=== PATIENT | female | born 1955 | race Caucasian/White ===

== ENCOUNTER → 2017-06-21 | Outpatient (CLI) | payer OTHER ==
--- NOTE | 2017-06-21 13:04 | US ---
EXAMINATION TYPE: US transvaginal DATE OF EXAM: 06/21/2017 COMPARISON: NONE CLINICAL HISTORY: 62-year-old female R10.2 Pelvic Pain R14.0 Bloating. Bloating, intermittent left pe lvic pain TECHNIQUE: Transvaginal (TV) Date of LMP: unknown FINDINGS: Uterus: Retroverted measuring 5.3 x 2.8 x 4.1 cm Endometrial Stripe: 0.24 cm, thin and normal. There is trace fluid within the uterine cavity. Right Ovary: 1.7 x 0.9 x 1.1 cm Left Ovary: 1.8 x 0.9 x 1.2 cm Both ovaries are small and normal consistent with postmenopausal status. No evident adnexal abnormality or cul-de-sac free fluid. IMPRESSION: 1. Small amount of fluid along the uterine cavity unusual in a postmenopausal female but of questiona ble clinical significance. The stripe itself remains thin. 2. Otherwise, no specific abnormality seen.
== END | disposition home or self-care (01) ==
LOC: RADUSWWP 10:09
PROVIDERS: ATTEND Obstetrics & Gynecology
DX: R10.2 Pelvic and perineal pain (principal); R14.0 Abdominal distension (gaseous)
CPT/HCPCS: 76830; 86304

== ENCOUNTER → 2022-05-31 | Outpatient (CLI) | payer MEDICARE, OTHER ==
--- NOTE | 2022-06-01 09:01 | MM ---
Reason for Exam: Hx of breast augmentation, asymptomatic. Last mammogram was performed 1 year(s) and 9 month(s) ago. Patient History: Menarche at age 13. First Full-Term at age 19. Postmenopausal. 03/25/2010, Benign Excisional Biopsy on the right side. Bilateral Implants. Risk Values: Erin 5 year model risk: 1.7%. NCI Lifetime model risk: 5.1%. Prior Study Comparison: 03/02/2010 Right MG diagnostic mammo RT w CAD - 2, [facility]. 05/14/2019 Bilateral MG screening mammo implant/CAD, [facility]. 08/09/2020 Bilateral MG screening mammo implant/CAD, Unknown. Tissue Density: The breast tissue is heterogeneously dense. This may lower the sensitivity of mammography. Findings: Analyzed By CAD. Bilateral breast implants, implants appear intact. Benign-appearing calcifications. There is no suspicious group of microcalcifications or new suspicious mass in either breast. Overall Assessment: Benign, BI-RAD 2 Management: Screening Mammogram of both breasts in 1 year. A clinical breast exam by your physician is recommended on an annual basis and results should be correlated with mammographic findings. [facility] will attempt to contact patient to return for supplemental views and ultrasound if indicated. Electronically signed and approved by: Max Salinas DO
== END | disposition home or self-care (01) ==
LOC: RADMAMWWP 10:31
PROVIDERS: ATTEND Obstetrics & Gynecology
DX: Z12.31 Encounter for screening mammogram for malignant neoplasm of breast (principal); Z78.0 Asymptomatic menopausal state
CPT/HCPCS: 77063; 77067

== ENCOUNTER → 2023-06-27 | Outpatient (CLI) | payer MEDICARE ==
--- NOTE | 2023-06-27 19:45 | BD ---
EXAMINATION TYPE: Axial Bone Density DATE OF EXAM: 06/27/2023 CLINICAL HISTORY: 68 years old Female. ICD-10 CODE: M85.88 OTH DISRD OF BONE DENS Height: 63" Weight: 145lbs FRAX RISK QUESTIONS: Alcohol (3 or more units per day): No Family History (Parent hip fracture): No Glucocorticoids (More than 3mos): No (Ex: prednisone, prednisolone, methylprednisolone, dexamethasone, and hydrocortisone). History of Fracture in Adulthood: No Secondary Osteoporosis: 1. Type 1 Diabetes: No 2. Hyperthyroidism: No 3. Menopause before 45: No 4. Malnutrition: No 5. Chronic liver disease: No Rheumatoid Arthritis: No Current Tobacco Use: No RISK FACTORS HISTORY OF: Hip Fracture (Right/Left): No Spine Fracture: No History of Wrist Fracture: No Surgery to Spine/Hip(right/left)/Wrist (right/left): No MEDICATIONS: Thyroid Medications: Yes Which medication: Levothyroxine How Lon years Osteoporosis Medications: No EXAM MEASUREMENTS: Bone mineral densitometry was performed using the [employer]. Bone mineral density as measured about the Lumbar spine is: ----- L1-L4(G/cm2): 1.080 T Score Values are as follows: ----- L1: -1.2 ----- L2: -1.5 ----- L3: -1.2 ----- L4: 0.0 ----- L1-L4: -0.8 Z Score Values are as follows: ----- L1: 0.4 ----- L2: 0.1 ----- L3: 0.5 ----- L4: 1.7 ----- L1-L4: 0.8 Baseline @MPH Bone mineral density about the R hip (g/cm2): 0.854 Bone mineral density about the L hip (g/cm2): 0.865 T Score values are as follows: -----R Neck: -1.7 -----L Neck: -1.0 -----R Total: -1.2 -----L Total: -1.1 Z Score values are as follows: -----R Neck: -0.1 -----L Neck: 0.6 -----R Total: 0.2 -----L Total: 0.3 Baseline @MPH FRAX%s: The graph provided illustrates a 10.7% chance for a major osteoporotic fx and a 1.8% chance f or the hips probability for fx in 10 years time. IMPRESSION: Osteopenia (T Score between -2.5 and -1). There is slightly increased risk of fracture and the patient may be considered for treatment. Re-Screen 2-5 years. NOTE: T-SCORE=SD OF THE YOUNG ADULT MEAN.
--- NOTE | 2023-06-27 20:46 | MM ---
Reason for Exam: Hx of breast augmentation, asymptomatic. Last mammogram was performed 1 year(s) and 1 month(s) ago. Patient History: Menarche at age 13. First Full-Term at age 19. Postmenopausal. Patient has history of breast feeding. 03/25/2010, Benign Excisional Biopsy on the right side. Bilateral Implants. Risk Values: Erin 5 year model risk: 1.7%. NCI Lifetime model risk: 4.9%. Prior Study Comparison: 05/14/2019 Bilateral MG screening mammo implant/CAD, [facility]. 08/09/2020 Bilateral MG screening mammo implant/CAD, Unknown. 05/31/2022 Bilateral MG 3D screening mammo w/cad, [facility]. Tissue Density: The breast tissue is heterogeneously dense. This may lower the sensitivity of mammography. Findings: Analyzed By CAD. There are retropectoral saline implants. Benign renal cyst calcifications on both sides remain unchanged. There is no suspicious group of microcalcifications or new suspicious mass in either breast. Overall Assessment: Benign, BI-RAD 2 Management: Screening Mammogram of both breasts in 1 year. . Patient should continue monthly self-breast exams. A clinical breast exam by your physician is recommended on an annual basis. This exam should not preclude additional follow-up of suspicious palpable abnormalities. Note on Erin scores and lifetime risk: 1. A Erin score greater than 3% is considered moderate risk. If this is the case, consider specialist referral to assess eligibility for a risk reducing agent. 2. If overall lifetime risk for the development of breast cancer is 20% or higher, the patient may qualify for future screening with alternating mammogram and breast MRI. Electronically signed and approved by: Vashti Naranjo M.D. Radiologist
== END | disposition home or self-care (01) ==
LOC: RADBDWWP 10:21
PROVIDERS: ATTEND Obstetrics & Gynecology
DX: Z12.31 Encounter for screening mammogram for malignant neoplasm of breast (principal); M85.89 Other specified disorders of bone density and structure, multiple sites; Z78.0 Asymptomatic menopausal state; Z98.82 Breast implant status
CPT/HCPCS: 77063; 77067; 77080